=== PATIENT | female | born 1965 | race Caucasian/White ===

== ENCOUNTER → 2022-03-10 09:53 | Outpatient (CLI) | payer OTHER, SELFPAY ==
--- NOTE | 2022-03-10 | DI.RAD.S_ITS ---
PROCEDURE: XR ANKLE RT MIN 3V INDICATIONS: ankylosing spondylitis, damaged discs, OA TECHNIQUE: 3 views of the ankle were acquired. COMPARISON: None. FINDINGS: Bones: No fractures or dislocations. Ankle mortise is normally aligned. No suspicious bony lesions. Soft tissues: No tibiotalar joint effusion. Achilles tendon appears normal. IMPRESSION: No visualized acute fracture or dislocation. However, if clinical concern and/or pain persist, short interval imaging followup in 7-10 days is recommended, as occult injury cannot be definitively excluded. Dictated by: Josefa De Oliveira M.D. on 03/10/2022 at 15:49 Approved by: Josefa De Oliveira M.D. on 03/10/2022 at 15:49
--- NOTE | 2022-03-10 | DI.RAD.S_ITS ---
PROCEDURE: XR CERVICAL SPINE 2V OR 3V INDICATIONS: ankylosing spondylitis, damaged discs, OA TECHNIQUE: 3 view(s) of the cervical spine were acquired. COMPARISON: None. FINDINGS: Bones: No fractures or dislocations to the C7 level. The lateral masses of C1 appear intact on the odontoid view. No suspicious bony lesions. Interbody fusion at C4-C6 versus ankylosis is present. Disc space narrowing and endplate osteophyte formation, worst at C3-C4 and C6-C7, indicating degenerative disc disease. Facet hypertrophy throughout the cervical spine, indicating osteoarthritis. Soft tissues: No prevertebral soft tissue swelling. IMPRESSION: 1. Ankylosis versus postsurgical sequelae as described above. 2. Multilevel degenerative disc and facet disease. 3. No acute fracture. No osseous lesion. If symptoms and/or clinical suspicion for pathology persist, further assessment with repeat, or advanced imaging (e.g., CT, MRI, or bone scan) may be helpful for further assessment. Dictated by: Praveen Regalado M.D. on 03/10/2022 at 13:37 Approved by: Praveen Regalado M.D. on 03/10/2022 at 13:38
== END ==
PROVIDERS: PCP Internal Medicine Cardiovascular Disease; Referring Provider Internal Medicine Cardiovascular Disease; Visit Provider Internal Medicine Cardiovascular Disease
DX: M50.31 Other cervical disc degeneration, high cervical region (principal); M25.571 Pain in right ankle and joints of right foot; Z98.1 Arthrodesis status
CPT/HCPCS: 72040; 73610